=== PATIENT | female | born 1995 | race Caucasian/White ===

== ENCOUNTER 2017-02-17 09:26 | Emergency (ER) | payer OTHER ==
[~2017-02-17] VITALS: Ht 167.6 cm; Wt 124.0 kg
[2017-02-17 09:30] VITALS: BP 136/84
[2017-02-17] MEDS ORDERED: PREN1TAB80 PO (09:37)
== END 2017-02-17 10:09 | disposition home or self-care (01) ==
LOC: EMS 09:29
DX: O20.0 Threatened abortion (principal); Z3A.17 17 weeks gestation of pregnancy
CPT/HCPCS: 99284

== ENCOUNTER 2017-03-27 13:01 | Observation (INO) | payer OTHER ==
[~2017-03-27] VITALS: Ht 167.6 cm; Wt 126.1 kg
[~2017-03-27 13:01] MED LIST: PREN1TAB80 PO
[2017-03-27 13:29] VITALS: BP 106/64
== END 2017-03-27 14:30 | disposition home or self-care (01) ==
LOC: 4S 13:10
PROVIDERS: ADMIT Specialist; ATTEND Specialist
DX: O36.8120 Decreased fetal movements, second trimester, not applicable or unspecified (principal); O99.212 Obesity complicating pregnancy, second trimester; O26.893 Other specified pregnancy related conditions, third trimester; G89.29 Other chronic pain; M54.9 Dorsalgia, unspecified; Z3A.23 23 weeks gestation of pregnancy
CPT/HCPCS: 59025; G0378

== ENCOUNTER 2022-05-30 12:34 | Emergency (ER) | payer OTHER ==
[~2022-05-30] VITALS: Ht 167.6 cm; Wt 142.3 kg
[2022-05-30] MEDS ORDERED: ACET-2247 PO (12:46)
[2022-05-30 13:47] LABS: BASOPHILS % (AUTO) 0.6 % (0.0-2.0); EOSINOPHILS % (AUTO) 1.4 % (1.0-6.0); HEMATOCRIT 35.3 % (36-46); HEMOGLOBIN 11.6 g/dL (12.0-16.0); LYMPHOCYTES # (AUTO) 2.3 K/uL (1.0-4.8); LYMPHOCYTES % (AUTO) 21.6 % (22.0-44.0); MEAN CORPUSCULAR HEMOGLOBIN 25.2 pg (26.0-34.0); MEAN CORPUSCULAR HGB CONC 32.9 G/dL (31.0-37.0); MEAN CORPUSCULAR VOLUME 77 fL (80-100); MONOCYTES # (AUTO) 0.8 K/uL (0.1-1.0); MONOCYTES % (AUTO) 7.8 % (2.0-9.0); NEUTROPHILS # (AUTO) 7.3 K/uL (1.8-7.7); NEUTROPHILS % (AUTO) 68.6 % (40.0-70.0); PLATELET COUNT (AUTO) 390 K/uL (150-450); RED CELL DISTRIBUTION WIDTH 14.7 % (11.5-14.5)
[2022-05-30 14:04] LABS: ANION GAP 5 mmol/L (8-16); CARBON DIOXIDE 29 mmol/L (22-29); CHLORIDE 105 mmol/L (98-107); CREATININE 0.93 mg/dL (0.60-1.30); GLOMERULAR FILTR. RATE CALC > 60 mL/min (>60); GLUCOSE,RANDOM 103 mg/dL (70-110); POTASSIUM 3.9 mmol/L (3.5-5.1); SODIUM SERUM 139 mmol/L (136-145); UREA NITROGEN, BLOOD 16 mg/dL (7-18)
[2022-05-30 14:06] LABS: ALANINE AMINOTRANSFERASE 45 U/L (12-78); ALBUMIN 3.4 g/dL (3.4-5.0); ALKALINE PHOSPHATASE 81 U/L (46-116); ASPARTATE AMINOTRANSFERASE 28 U/L (15-37); BILIRUBIN,TOTAL 0.6 mg/dL (0.1-1.0); TOTAL PROTEIN, SERUM 7.4 g/dL (6.4-8.2)
[2022-05-30 14:42] LABS: HCG,QUANTITATIVE 1 mIU/mL (0-6)
[2022-05-30 15:13] LABS: APPEARANCE,URINE CLEAR (CLEAR); BILIRUBIN,URINE NEGATIVE (NEGATIVE); GLUCOSE, URINE (UA) NEGATIVE (NEGATIVE); KETONES,URINE NEGATIVE (NEGATIVE); LEUKOCYTE ESTERASE ,URINE SMALL (NEGATIVE); NITRATE,URINE NEGATIVE (NEGATIVE); OCCULT BLOOD,URINE LARGE (NEGATIVE); PROTEIN,URINE TRACE mg/dL (NEGATIVE); SPECIFIC GRAVITIY, URINE 1.014 (1.003-1.030)
[2022-05-30 15:29] LABS: BACTERIA,URINE Few /HPF (None Seen); SQUAMOUS EPITHELIAL CELL,UR Few /LPF (None Seen)
[2022-05-30] MEDS ORDERED: NITR-75 PO (15:52)
[2022-05-30 16:05] VITALS: BP 128/74
== END 2022-05-30 16:06 | disposition home or self-care (01) ==
LOC: EMS 12:37
DX: N39.0 Urinary tract infection, site not specified (principal); N93.8 Other specified abnormal uterine and vaginal bleeding; F12.90 Cannabis use, unspecified, uncomplicated
CPT/HCPCS: 80053; 81001; 84702; 85025; 86901; 87086; 99283

== ENCOUNTER 2023-05-20 00:19 | Emergency (ER) | payer OTHER ==
[~2023-05-20] VITALS: Ht 167.6 cm; Wt 138.2 kg
[~2023-05-20 00:19] MED LIST changes: +ACET-2247 PO; +NITR-75 PO; -PREN1TAB80 PO
[2023-05-20 01:11] LABS: BASOPHILS % (AUTO) 1.2 % (0.0-2.0); EOSINOPHILS % (AUTO) 1.1 % (1.0-6.0); HEMATOCRIT 35.7 % (36-46); HEMOGLOBIN 11.6 g/dL (12.0-16.0); LYMPHOCYTES # (AUTO) 2.4 K/uL (1.0-4.8); LYMPHOCYTES % (AUTO) 18.7 % (22.0-44.0); MEAN CORPUSCULAR HEMOGLOBIN 25.1 pg (26.0-34.0); MEAN CORPUSCULAR HGB CONC 32.4 G/dL (31.0-37.0); MEAN CORPUSCULAR VOLUME 78 fL (80-100); MONOCYTES # (AUTO) 1.1 K/uL (0.1-1.0); MONOCYTES % (AUTO) 8.8 % (2.0-9.0); NEUTROPHILS % (AUTO) 70.2 % (40.0-70.0); PLATELET COUNT (AUTO) 343 K/uL (150-450); RED CELL DISTRIBUTION WIDTH 16.2 % (11.5-14.5); WHITE BLOOD COUNT (AUTO) 12.8 K/uL (4.5-11.0)
[2023-05-20 01:30] LABS: ANION GAP 12 mmol/L (8-16); CALCIUM, TOTAL 8.6 mg/dL (8.8-10.5); CARBON DIOXIDE 25 mmol/L (22-29); CHLORIDE 101 mmol/L (98-107); CREATININE 0.72 mg/dL (0.60-1.30); GLOMERULAR FILTR. RATE CALC > 60 mL/min (>60); GLUCOSE,RANDOM 97 mg/dL (70-110); POTASSIUM 3.9 mmol/L (3.5-5.1); SODIUM SERUM 138 mmol/L (136-145); UREA NITROGEN, BLOOD 9 mg/dL (7-18)
[2023-05-20 02:05] LABS: RBC MORPHOLOGY COMMENT ABNORMAL RBC MORPH
[2023-05-20] MEDS ORDERED: IOHEXOL 350 MG/ML 100 ML VIAL ONE (02:37)
[2023-05-20] MEDS ORDERED: SODIUM CHLORIDE 0.9% 100 ML ONE (02:37)
[2023-05-20] MEDS ORDERED: KETOROLAC TROMETHAMINE 30 MG/ML VIAL IVP ONE (03:00)
[2023-05-20] MEDS ORDERED: AMOX1TAB16 PO (03:33)
[2023-05-20] MEDS ORDERED: IBUP-1492 PO (03:33)
[2023-05-20 04:45] VITALS: BP 129/84; PULSE 71; RESP 18; TEMP 97.3
== END 2023-05-20 04:45 | disposition home or self-care (01) ==
LOC: EMS 00:20
DX: L03.211 Cellulitis of face (principal); F12.90 Cannabis use, unspecified, uncomplicated
CPT/HCPCS: 99285; 96374; 70487; 80048; 85025; 36415; J1885; Q9967; J7050

== ENCOUNTER 2023-05-22 15:32 | Emergency (ER) | payer OTHER ==
[~2023-05-22] VITALS: Ht 167.6 cm; Wt 136.4 kg
[~2023-05-22 15:32] MED LIST changes: +AMOX1TAB16 PO; +IBUP-1492 PO
[2023-05-22 15:39] VITALS: BP 127/75; PULSE 60; RESP 16; TEMP 99.2
[2023-05-22] MEDS ORDERED: AMOX1TAB16 PO (17:49)
== END 2023-05-22 18:06 | disposition home or self-care (01) ==
LOC: EMS 15:32
DX: L03.211 Cellulitis of face (principal); K04.7 Periapical abscess without sinus; F12.90 Cannabis use, unspecified, uncomplicated
CPT/HCPCS: 99283

== ENCOUNTER 2023-11-20 17:49 | Emergency (ER) | payer OTHER ==
[~2023-11-20] VITALS: Ht 167.6 cm; Wt 104.5 kg
[2023-11-20 17:53] VITALS: TEMP 98.1
[2023-11-20] MEDS ORDERED: BACL10TA PO (19:28)
[2023-11-20] MEDS ORDERED: LIDO700A15 TP (19:28)
[2023-11-20] MEDS ORDERED: ACET-3385 PO (19:30)
[2023-11-20 19:45] VITALS: BP 121/78; PULSE 81; RESP 17
[2023-11-20] MEDS: HYDROCODONE/ACETAMINOPHEN 5-325 MG TABLET PO ONE (20:03)
[2023-11-20] MEDS: LIDOCAINE 5% TRANSDERMAL PATCH TD ONE (20:04)
== END 2023-11-20 19:50 | disposition home or self-care (01) ==
LOC: EMS 17:49
DX: M79.18 Myalgia, other site (principal); F12.90 Cannabis use, unspecified, uncomplicated
CPT/HCPCS: 72100; 99283

== ENCOUNTER 2023-11-23 14:28 | Emergency (ER) | payer OTHER ==
[~2023-11-23] VITALS: Ht 167.6 cm; Wt 107.7 kg
[~2023-11-23 14:28] MED LIST changes: +ACET-3385 PO; +BACL10TA PO; +LIDO700A15 TP
[2023-11-23 14:32] VITALS: BP 129/86; PULSE 99; RESP 16; TEMP 97.8
[2023-11-23 16:26] LABS: BASOPHILS % (AUTO) 0.4 % (0.0-2.0); HEMATOCRIT 39.6 % (36-46); HEMOGLOBIN 12.9 g/dL (12.0-16.0); LYMPHOCYTES # (AUTO) 2.6 K/uL (1.0-4.8); LYMPHOCYTES % (AUTO) 22.9 % (22.0-44.0); MEAN CORPUSCULAR HEMOGLOBIN 27.6 pg (26.0-34.0); MEAN CORPUSCULAR HGB CONC 32.6 G/dL (31.0-37.0); MEAN CORPUSCULAR VOLUME 85 fL (80-100); MONOCYTES # (AUTO) 0.9 K/uL (0.1-1.0); MONOCYTES % (AUTO) 7.9 % (2.0-9.0); NEUTROPHILS # (AUTO) 7.8 K/uL (1.8-7.7); NEUTROPHILS % (AUTO) 67.8 % (40.0-70.0); PLATELET COUNT (AUTO) 336 K/uL (150-450); RED BLOOD CELL COUNT(AUTO) 4.68 MIL/uL (4.00-5.20); RED CELL DISTRIBUTION WIDTH 15.8 % (11.5-14.5); WHITE BLOOD COUNT (AUTO) 11.5 K/uL (4.5-11.0)
[2023-11-23 16:41] LABS: ANION GAP 9 mmol/L (8-16); CALCIUM, TOTAL 9.7 mg/dL (8.8-10.5); CARBON DIOXIDE 27 mmol/L (22-29); CHLORIDE 103 mmol/L (98-107); CREATININE 0.75 mg/dL (0.60-1.30); GLOMERULAR FILTR. RATE CALC > 60 mL/min (>60); GLUCOSE,RANDOM 98 mg/dL (70-110); POTASSIUM 4.2 mmol/L (3.5-5.1); SODIUM SERUM 139 mmol/L (136-145); UREA NITROGEN, BLOOD 24 mg/dL (7-18)
[2023-11-23 16:52] LABS: ALANINE AMINOTRANSFERASE 28 U/L (12-78); ALBUMIN 3.5 g/dL (3.4-5.0); ALKALINE PHOSPHATASE 85 U/L (46-116); ASPARTATE AMINOTRANSFERASE 15 U/L (15-37); BILIRUBIN,TOTAL 0.5 mg/dL (0.1-1.0); HCG,QUANTITATIVE < 1 mIU/mL (0-6); TOTAL PROTEIN, SERUM 7.5 g/dL (6.4-8.2)
[2023-11-23] MEDS: LIDOCAINE 5% TRANSDERMAL PATCH TD ONE (19:40)
[2023-11-23] MEDS: TraMADol HCL 50 MG TABLET PO ONE (19:40)
[2023-11-23 21:15] LABS: APPEARANCE,URINE HAZY (CLEAR); BILIRUBIN,URINE NEGATIVE (NEGATIVE); COLOR,URINE YELLOW (YELLOW); GLUCOSE, URINE (UA) NEGATIVE (NEGATIVE); LEUKOCYTE ESTERASE ,URINE MODERATE (NEGATIVE); NITRATE,URINE NEGATIVE (NEGATIVE); OCCULT BLOOD,URINE TRACE (NEGATIVE); PROTEIN,URINE TRACE mg/dL (NEGATIVE); SPECIFIC GRAVITIY, URINE 1.032 (1.003-1.030)
[2023-11-23] MEDS ORDERED: TRAM-559 PO (21:28)
[2023-11-23] MEDS ORDERED: LIDO1ADH63 TP (21:30)
[2023-11-23 21:44] LABS: BACTERIA,URINE Moderate /HPF (None Seen); RBC,URINE 0-2 /HPF (0-2); SQUAMOUS EPITHELIAL CELL,UR Moderate /LPF (None Seen)
[2023-11-23] MEDS ORDERED: CEPH-558 PO (21:51)
[2023-11-23] MEDS ORDERED: FLUC150T61 PO (21:51)
[2023-11-23] MEDS: CEPHALEXIN MONOHYDRATE 500 MG CAPSULE PO ONE (21:56)
== END 2023-11-23 22:08 | disposition home or self-care (01) ==
LOC: EMS 14:29
DX: R55 Syncope and collapse (principal); M54.9 Dorsalgia, unspecified; F12.90 Cannabis use, unspecified, uncomplicated
CPT/HCPCS: 70450; 80053; 81001; 81003; 84702; 85025; 87086; 87186; 99284